=== PATIENT | male | born 1990 | race Caucasian/White ===

== ENCOUNTER 2017-05-05 13:14 | Emergency (ER) | payer OTHER ==
--- NOTE | 2017-05-05 13:37 | ED ---
General Adult HPI - General Stated complaint: ANXIETY Time Seen by Provider: 05/05/17 13:25 Source: RN notes reviewed - History of Present Illness Initial comments: This is a 26-year-old male presents emergency department with past mental history significant for seizures and depression. Patient comes in today because he got into some trauma he states at work and immediately started thinking about wanting to kill himself. Patient states he thought about killing himself by jumping off a rock known at suicide [place] or cutting his wrists. Patient states now is calm down he doesn't feel suicidal and is not even sure he needs to be here. Patient is willing to talk to a counselor. Patient denies any physical complaints today. Patient denies headache patient denies numbness weakness. Patient denies fever chills or cough. Patient denies any chest pain difficult breathing shortness of breath. Patient denies abdominal pain patient denies nausea vomiting diarrhea. - Related Data Home Medications Medication Instructions Recorded Confirmed Divalproex ER [Depakote ER] 1,000 mg PO QAM 05/05/17 05/05/17 Divalproex ER [Depakote ER] 250 mg PO QAM 05/05/17 05/05/17 Allergies Allergy/AdvReac Type Severity Reaction Status Date / Time levetiracetam [From Keppra] Allergy Rash/Hives Verified 05/05/17 14:07 topiramate [From Topamax] Allergy Rash/Hives Verified 05/05/17 14:07 Review of Systems ROS Statement: Those systems with pertinent positive or pertinent negative responses have been documented in the HPI. ROS Other: All systems not noted in ROS Statement are negative. General Exam - General Exam Comments Initial Comments: GENERAL: Patient is well-developed and well-nourished. Patient is nontoxic and well- hydrated and is in no acute distress. ENT: Neck is soft and supple. No significant lymphadenopathy is noted. Oropharynx is clear. Moist mucous membranes. Neck has full range of motion without eliciting any pain. EYES: The sclera were anicteric and conjunctiva were pink and moist. Extraocular movements were intact and pupils were equal round and reactive to light. Eyelids were unremarkable. PULMONARY: Unlabored respirations. Good breath sounds bilaterally. No audible rales rhonchi or wheezing was noted. CARDIOVASCULAR: There is a regular rate and rhythm without any murmurs gallops or rubs. ABDOMEN: Soft and nontender with normal bowel sounds. SKIN: Skin is clear with no lesions or rashes and otherwise unremarkable. NEUROLOGIC: Patient is alert and oriented x3. Cranial nerves II through XII are grossly intact. Motor and sensory are also intact. Normal speech, volume and content. Symmetrical smile. MUSCULOSKELETAL: Normal extremities with adequate strength and full range of motion. No lower extremity swelling or edema. No calf tenderness. 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 Patient states currently does not feel suicidal but he certainly felt suicidal earlier. Course Vital Signs 05/05/17 13:25 Temperature 98.2 F Pulse Rate 88 Respiratory 18 Rate Blood Pressure 132/68 O2 Sat by Pulse 99 Oximetry Disposition Clinical Impression: Situational depression Disposition: HOME SELF-CARE Condition: Good Instructions: Depression (ED) Referrals: Ana Klein MD [Primary Care Provider] - 1-2 days Time of Disposition: 14:43
[2017-05-05 13:39] VITALS: RESP 18
[2017-05-05 14:53] VITALS: BP 127/65; PULSE 80; TEMP 98
== END 2017-05-05 14:47 | disposition home or self-care (01) ==
LOC: EC 13:14
DX: F43.21 Adjustment disorder with depressed mood (principal); R45.851 Suicidal ideations; Z88.8 Allergy status to other drugs, medicaments and biological substances
CPT/HCPCS: 36415; 80164; 82075; 99284

== ENCOUNTER 2022-03-02 18:14 | Inpatient (IN) | payer MEDICAID, OTHER ==
--- NOTE | 2022-03-03 03:02 | ED ---
Psych HPI - General Chief Complaint: Psychiatric Symptoms Stated Complaint: Mental Health Time Seen by Provider: 03/03/22 01:53 Source: patient Mode of arrival: ambulatory - History of Present Illness Initial Comments: This patient is 31-year-old man who was brought to have Court ordered psychiatric evaluation. Patient reportedly noncompliant with treatment. Complaint: other -: days(s) Associated Psychiatric Symptoms: none Quality: constant Improves With: none Worsens With: none - Related Data Home Medications Medication Instructions Recorded Confirmed Divalproex ER [Depakote ER] 500 mg PO BID 05/05/17 03/03/22 Allergies Allergy/AdvReac Type Severity Reaction Status Date / Time levetiracetam [From Keppra] Allergy Rash/Hives Verified 03/03/22 07:59 topiramate [From Topamax] Allergy Rash/Hives Verified 03/03/22 07:59 Review of Systems ROS Statement: Those systems with pertinent positive or pertinent negative responses have been documented in the HPI. ROS Other: All systems not noted in ROS Statement are negative. Constitutional: Denies: fever Respiratory: Denies: cough, dyspnea Cardiovascular: Denies: chest pain, palpitations Gastrointestinal: Denies: abdominal pain, vomiting, diarrhea Genitourinary: Denies: dysuria Musculoskeletal: Denies: back pain Neurological: Denies: headache, weakness Past Medical History Past Medical History: No Reported History History of Any Multi-Drug Resistant Organisms: None Reported Additional Past Surgical History / Comment(s): jaw wired shut previously to heal Past Psychological History: Depression Smoking Status: Never smoker Past Alcohol Use History: Occasional Past Drug Use History: None Reported General Exam Limitations: no limitations General appearance: alert, in no apparent distress Head exam: Present: atraumatic, normocephalic Eye exam: Present: normal appearance. Absent: scleral icterus, conjunctival injection Neck exam: Present: normal inspection Respiratory exam: Present: normal lung sounds bilaterally. Absent: respiratory distress, wheezes, rales, rhonchi, stridor Cardiovascular Exam: Present: regular rate, normal rhythm, normal heart sounds. Absent: systolic murmur, diastolic murmur, rubs, gallop GI/Abdominal exam: Present: soft. Absent: distended, tenderness, guarding, rebound, rigid, mass Extremities exam: Present: normal inspection, normal capillary refill. Absent: pedal edema, calf tenderness Neurological exam: Present: alert, normal gait Psychiatric exam: Present: flat affect. Absent: agitated, anxious, manic, homicidal ideation, suicidal ideation Skin exam: Present: warm, dry, intact, normal color. Absent: rash Course Vital Signs 03/02/22 03/03/22 03/03/22 19:01 01:29 05:57 Temperature 98.2 F 98.1 F Pulse Rate 82 83 68 Pulse Rate [ Right] Respiratory 18 18 16 Rate Blood Pressure 152/87 124/75 97/61 Blood Pressure [Right Arm] O2 Sat by Pulse 98 98 95 Oximetry 03/03/22 08:00 Temperature 97.5 F L Pulse Rate Pulse Rate [ 108 H Right] Respiratory 16 Rate Blood Pressure Blood Pressure 129/59 [Right Arm] O2 Sat by Pulse 98 Oximetry Medical Decision Making - Lab Data Result diagrams: 03/04/22 07:51 03/04/22 07:51 Lab Results 03/03/22 03/03/22 03/03/22 Range/Units 06:01 06:46 06:46 Urine Color Yellow Urine Appearance Clear (Clear) Urine pH 6.0 (5.0-8.0) Ur Specific [place] 1.017 (1.001-1.035) Urine Protein Negative (Negative) Urine Glucose (UA) Negative (Negative) Urine Ketones Negative (Negative) Urine Blood Negative (Negative) Urine Nitrite Negative (Negative) Urine Bilirubin Negative (Negative) Urine Urobilinogen <2.0 (<2.0) mg/dL Ur Leukocyte Esterase Negative (Negative) Urine Opiates Screen Negative (Negative) Urine Methadone Screen Negative (Negative) Ur Propoxyphene Screen Negative (Negative) Urine Barbiturates Negative (Negative) Ur Phencyclidine Scrn Negative (Negative) Ur Amphetamine Screen Negative (Negative) U Benzodiazepines Scrn Negative (Negative) Urine Cocaine Screen Negative (Negative) U Cannabinoids Screen Negative (Negative) Urine Alcohol Negative (Negative) Coronavirus (PCR) Not Detected (Not Detectd) Disposition Clinical Impression: Mood disorder Disposition: ADMITTED IP TO THIS [facility] Condition: Fair Is patient prescribed a controlled substance at d/c from ED?: No
[2022-03-03] MEDS ORDERED: MAG HYDROX/AL HYDROX/SIMETH 30 ML CUP PO PRN (07:46)
[2022-03-03] MEDS ORDERED: MAGNESIUM HYDROXIDE 2,400 MG/10 ML CUP PO PRN (07:46)
[2022-03-03] MEDS ORDERED: ACETAMINOPHEN TAB 325 MG TAB PO PRN (07:46)
[2022-03-03] MEDS ORDERED: LORazepam 1 MG TAB PO PRN (07:50)
[2022-03-03] MEDS ORDERED: LORazepam 2 MG/ML INJ IM PRN (07:50)
[2022-03-03] MEDS ORDERED: HALOPERIDOL LACTATE 5 MG/ML 1 ML VIAL IM PRN (07:52)
[2022-03-03] MEDS ORDERED: haloperidoL 5 MG TAB PO PRN (07:52)
[2022-03-03 07:58] LABS: Appearance,Urine Clear (Clear); Bilirubin,Urine Negative (Negative); Blood,Urine Negative (Negative); Color,Urine Yellow; Glucose,Urine (UA) Negative (Negative); Ketones,Urine Negative (Negative); Leukocyte Esterase,Urine Negative (Negative); Nitrite,Urine Negative (Negative); Protein,Urine Negative (Negative); Specific Gravity,Urine 1.017 (1.001-1.035); Urobilinogen,Urine <2.0 mg/dL (<2.0)
[2022-03-03] MEDS: DIVALPROEX ER 500 MG TAB.ER.24H PO SCH ×2 (09:19→09:20)
--- NOTE | 2022-03-03 10:12 | P.CONS ---
History of Present Illness - Reason for Consult Consult date: 03/03/22 medical management Requesting physician: Jamarcus Goldberg - Chief Complaint depression - History of Present Illness This is a 31-year-old male patient of Dr. Klein who presented to the ER who apparently was brought into have a court ordered psychiatric evaluation due to noncompliance with treatment. Patient has past medical history of depression in which she is maintained on Depakote. Patient denies any other significant health history. Patient denies alcohol or nicotine use. Patient denies any recent illness. Patient denies any acute complaints. Patient denies chest pain or shortness of breath. Patient denies nausea vomiting or diarrhea. Patient denies any urinary burning or frequency. At this time patient has been admitted to the mental health unit. Current vitals temp 98.1, heart rate 68, respiratory rate 16, blood pressure 97/61 patient stating 95% on room air Review of Systems Please refer to HPI otherwise unremarkable Past Medical History Past Medical History: No Reported History History of Any Multi-Drug Resistant Organisms: None Reported Additional Past Surgical History / Comment(s): jaw wired shut previously to heal Past Psychological History: Depression Smoking Status: Never smoker Past Alcohol Use History: Occasional Past Drug Use History: None Reported Medications and Allergies Home Medications Medication Instructions Recorded Confirmed Type Divalproex ER [Depakote ER] 500 mg PO BID 05/05/17 03/03/22 History Allergies Allergy/AdvReac Type Severity Reaction Status Date / Time levetiracetam [From Keppra] Allergy Rash/Hives Verified 03/03/22 07:59 topiramate [From Topamax] Allergy Rash/Hives Verified 03/03/22 07:59 Physical Exam Vitals: Vital Signs Temp Pulse Pulse Resp BP BP Pulse Ox 03/03/22 08:00 97.5 F L 108 H 16 129/59 98 03/03/22 05:57 98.1 F 68 16 97/61 95 03/03/22 01:29 83 18 124/75 98 03/02/22 19:01 98.2 F 82 18 152/87 98 Intake and Output 03/02/22 03/03/22 03/03/22 22:59 06:59 14:59 Other: Weight 81.647 kg 86.9 kg Head normocephalic Neck supple Lungs clear to auscultation bilaterally no wheezing or crackles Heart regular rate and rhythm S1-S2, no rub or gallop Abdomen is soft nontender nondistended positive bowel sounds no hepatosplenomegaly Extremities no edema Neuro alert and orientated to 3 Assessment and Plan Assessment: 1. Depression. Patient has been admitted to the mental health unit 2. Noncompliance with medication. 3. History of seizures patient is maintained on Depakote thank you for this consultation we'll continue to follow patient closely throughout stay
[2022-03-03] MEDS ORDERED: FLUoxetine HCL 10 MG CAP PO STA (13:23)
--- NOTE | 2022-03-03 13:25 | P.HP ---
Psychiatric H&P - . H&P Date: 03/03/22 History & Physical: Allergies Allergy/AdvReac Type Severity Reaction Status Date / Time levetiracetam [From Keppra] Allergy Rash/Hives Verified 03/03/22 07:59 topiramate [From Topamax] Allergy Rash/Hives Verified 03/03/22 07:59 Vital Signs Temp 97.5 F L 03/03/22 08:00 Pulse 108 H 03/03/22 08:00 Resp 16 03/03/22 08:00 BP 129/59 03/03/22 08:00 Pulse Ox 98 03/03/22 08:00 FiO2 Intake & Output 03/02/22 03/03/22 03/03/22 18:59 06:59 18:59 Weight 81.647 kg 86.9 kg Laboratory Last Values Urine Color Yellow 03/03/22 06:46 Urine Appearance Clear (Clear) 03/03/22 06:46 Urine pH 6.0 (5.0-8.0) 03/03/22 06:46 Ur Specific [place] 1.017 (1.001-1.035) 03/03/22 06:46 Urine Protein Negative (Negative) 03/03/22 06:46 Urine Glucose (UA) Negative (Negative) 03/03/22 06:46 Urine Ketones Negative (Negative) 03/03/22 06:46 Urine Blood Negative (Negative) 03/03/22 06:46 Urine Nitrite Negative (Negative) 03/03/22 06:46 Urine Bilirubin Negative (Negative) 03/03/22 06:46 Urine Urobilinogen <2.0 mg/dL (<2.0) 03/03/22 06:46 Ur Leukocyte Esterase Negative (Negative) 03/03/22 06:46 Valproic Acid 77.6 ug/mL 03/03/22 11:25 Coronavirus (PCR) Not Detected (Not Detectd) 03/03/22 06:01 03/03/22 13:24 IDENTIFYING DATA: Patient is a single, employed, 31-year-old male who presents to the hospital under petition for suicidal and homicidal ideation. HPI: Patient presented to the hospital on 03/03/2022, brought into the emergency department by police under petition by the patient's mother for suicidal ideation, anger, and homicidal threats. As per petition filled out by the patient's mother, the patient "went to a gas station and told a girl that he was going to hang himself. He told me and his father that he was going to kill himself. He has threatened to hurt me. He put suicidal postings on Facebook." Upon evaluation on the psychiatric unit, the patient states that "I know what I did was wrong. I'm sorry. Can I please leave." He does express that he has been feeling increasingly depressed over the past few months. He does endorse significant symptoms of mood disorder including anger outbursts, suicidal threats, and homicidal threats. The patient has been previously treated for depression and suicidal ideation but is currently not open with any outpatient services. He does have a history of inpatient psychiatric hospitalization at [facility] as a juvenile and has been trialed on different medications including Abilify, Seroquel, Lexapro, and Topamax. The patient reports that he did not want to be on any medications because he had a poor reaction to medications in the past. As per discussion with the patient's mother and patient permission granted by the patient, the patient had increased suicidal thoughts when on Lexapro. In regards to other mood symptoms, the patient does not endorse any significant history of manic episodes. He denies any increased goal-directed activity, impulsivity and spending, or grandiosity. The patient denies any significant history of psychosis. He reports no history of auditory or visual hallucinations. He denies any paranoia or delusions. The patient is willing to sign himself voluntarily on the psychiatric unit. He states that he will take medications. PAST PSYCHIATRIC HISTORY: Patient states that he has been previously diagnosed with depression. The patient has had previous trials of Abilify, Seroquel, Lexapro, Topamax. Patient has had 1 previous psychiatric hospitalization at [facility] when he was a juvenile. Patient denies any psychiatric outpatient follow-up. Patient denies any history of suicide attempts in the past. PMH: ALLERGIES: Keppra, Topamax CHEMICAL DEPENDENCY HISTORY: Patient denies any tobacco, alcohol, marijuana, or illicit drug use. FAMILY PSYCHIATRIC/SUBSTANCE USE HISTORY: No reported family history. SOCIAL HISTORY: Patient currently lives in an apartment that he is renting from his parents. He is currently employed at the [employer]. He is single, never , and has no children. Hobbies and interests include outdoor activities. He reports no legal issues. MENTAL STATUS EXAM: General Appearance: Patient appears to be stated age is alert, directable, and attempts to cooperate. Patient appears to have fair hygiene and grooming. Behavior: Patient is seated without any agitated behavior. Eye contact is appropriate. Speech: Patient's speech is fluent and nonpressured. Mood/Affect: Patient reports their mood is "I'm better now," affect is irritable Suicidality/Homicidality: Patient is currently denying any suicidal or homicidal ideation. Perceptions: Patient denies any visual hallucinations and denies any auditory hallucinations Though content/process: There is no evidence of any delusional thought content and thought process is linear and goal-directed. Patient is very fixated on discharge. Memory and concentration: AOX3, grossly intact for the purposes of this session. Can spell "WORLD" backwards Judgment and insight: Poor STRENGTHS/WEAKNESSES: Strength is that the patient is gainfully employed and has a supportive family. Weakness that the patient has poor impulse control and poor frustration tolerance. INTELLECT: average IMPRESSIONS: Major depressive disorder, recurrent, severe Intermittent explosive disorder Rule out autism spectrum disorder PLAN: -Patient is admitted under voluntary status to MHU for stabilization of psychiatric symptoms and safety. Patient signed adult voluntary form and medication consent and is placed in patient's chart. -Medications : Will start patient on Prozac for depression and intermittent Also disorder Risperdal 0.5 mg by mouth twice a day for mood stabilization and agitation -Ativan and Haldol PRN for agitation/aggression -Patient was counseled on substance abuse. -Patient was informed of the risks, benefits and side effects of the medication and patient verbally consented to taking the medications. Patient signed med consent form and was placed in chart. -Internal Medicine consult to perform medical evaluation and physical. -SW on board for discharge planning. Encourage patient to participate in groups to work on coping skills.
[2022-03-03 17:00] LABS: Urine Alcohol Negative (Negative); Urine Barbiturate Negative (Negative); Urine Cocaine Negative (Negative); Urine Methadone Negative (Negative); Urine Opiates Negative (Negative); Urine Phencyclidine Negative (Negative)
[2022-03-04] MEDS: FLUoxetine HCL 10 MG CAP PO SCH (08:14)
[2022-03-04 08:15] LABS: Basophils # (A) 0.1 k/uL (0-0.2); Basophils % (A) 1 %; Eosinophils # (A) 0.1 k/uL (0-0.7); Eosinophils % (A) 1 %; HCT 44.8 % (39.0-53.0); HGB 14.8 gm/dL (13.0-17.5); Lymphocytes # (A) 3.9 k/uL (1.0-4.8); Lymphocytes % (A) 43 %; MCH 30.1 pg (25.0-35.0); MCV 91.3 fL (80.0-100.0); Mean Platelet Volume 7.3; Monocytes # (A) 0.7 k/uL (0-1.0); Monocytes % (A) 7 %; Neutrophils % (A) 44 %; Platelet Count 285 k/uL (150-450); RBC 4.91 m/uL (4.30-5.90); RDW 11.9 % (11.5-15.5); WBC 9.1 k/uL (3.8-10.6)
[2022-03-04] MEDS: DIVALPROEX ER 500 MG TAB.ER.24H PO SCH (08:15)
[2022-03-04] MEDS: risperiDONE 0.5 MG TAB PO SCH ×4 (08:15→20:51)
[2022-03-04 08:32] LABS: ALT 24 U/L (4-49); AST 25 U/L (17-59); African American GFR (CKD) >90 (>60 ml/min/1.73 sqM); Albumin 4.3 g/dL (3.5-5.0); Alkaline Phosphatase 34 U/L (38-126); Anion Gap 11 mmol/L; Bilirubin,Unconjugated 0.8 mg/dL (0.0-1.1); Blood Urea Nitrogen 14 mg/dL (9-20); Calcium 9.8 mg/dL (8.4-10.2); Carbon Dioxide 30 mmol/L (22-30); Chloride 100 mmol/L (98-107); Glucose 101 mg/dL (74-99); Non-African American GFR(CKD) >90 (>60 ml/min/1.73 sqM); Potassium 4.5 mmol/L (3.5-5.1); Sodium 141 mmol/L (137-145); Total Bilirubin 0.7 mg/dL (0.2-1.3); Total Protein 7.3 g/dL (6.3-8.2)
[2022-03-04 11:58] LABS: Chol/HDL Ratio 5.67 Ratio; LDL Cholesterol,Calculated 174.6 mg/dL (0.0-131.0)
--- NOTE | 2022-03-04 18:37 | P.PN ---
Progress Note - Text Progress Note Date: 03/04/22 Interval history: Patient was directable and agreeable to speak with staff writer.At this time patient denies any suicidal or homicidal ideations, intent or plan. Denies any auditory or visual hallucinations. Patient denies any side effects from the medications and has been compliant with meds. He is attending groups, but not all. Mental status exam: General Appearance: Patient appears to be stated age. He is disheveled and dressed in hospital gown. Behavior: No agitated behavior. Patient is calm and directable. Speech: Patient's speech is fluent and nonpressured. Mood/Affect: Mood is improving mildly "good", affect is congruent and constricted. Suicidality/Homicidality: Patient denies having any suicidal or homicidal ideation intent or plan. Perceptions: Patient denies any auditory or visual hallucinations. Though content/process: There is no evidence of any delusional thought content, and thought process is circumstantial. Memory and concentration: Alert and oriented to person, place, time (day, month, year), grossly intact for the purposes of this session Judgment and insight: improving mildly Assessment/Plan: Continue with current diagnosis. Patient continues to meet criteria for inpatient psychiatric admission for symptom stabilization and safety. Patient will be maintained on current psychotropic medication regimen. Monitor for medication compliance and for any psychotropic medication side effects. Will continue to monitor ongoing response to treatment. Encouraged participation in milieu.
[2022-03-05] MEDS: DIVALPROEX ER 500 MG TAB.ER.24H PO SCH (08:05)
[2022-03-05] MEDS: FLUoxetine HCL 10 MG CAP PO SCH (08:05)
[2022-03-05] MEDS: risperiDONE 0.5 MG TAB PO SCH ×2 (08:05→21:58)
[2022-03-05 08:06] VITALS: RESP 16
--- NOTE | 2022-03-05 19:04 | P.PN ---
Progress Note - Text Progress Note Date: 03/05/22 Interval history: Patient was directable and agreeable to speak with underwriter solicitation director. He reports his mood is "great". He reports good sleep and appetite. At this time patient denies any suicidal or homicidal ideations, intent or plan. Denies any auditory or visual hallucinations. Patient denies any side effects from the medications and has been compliant with meds. He is attending groups, attended all groups today. Mental status exam: General Appearance: Patient appears to be stated age. He is disheveled and dressed in hospital gown. Behavior: No agitated behavior. Patient is calm and directable. Speech: Patient's speech is fluent and nonpressured. Mood/Affect: Mood is improving mildly "good", affect is congruent and constricted. Suicidality/Homicidality: Patient denies having any suicidal or homicidal ideation intent or plan. Perceptions: Patient denies any auditory or visual hallucinations. Though content/process: There is no evidence of any delusional thought content, and thought process is circumstantial. Memory and concentration: Alert and oriented to person, place, time (day, month, year), grossly intact for the purposes of this session Judgment and insight: improving mildly Assessment/Plan: Continue with current diagnosis. Patient continues to meet criteria for inpatient psychiatric admission for symptom stabilization and safety. Patient will be maintained on current psychotropic medication regimen. Monitor for medication compliance and for any psychotropic medication side effects. Will continue to monitor ongoing response to treatment. Encouraged participation in milieu.
[2022-03-06] MEDS: risperiDONE 0.5 MG TAB PO SCH ×2 (08:01→20:32)
[2022-03-06] MEDS: FLUoxetine HCL 10 MG CAP PO SCH (08:01)
[2022-03-06] MEDS: DIVALPROEX ER 500 MG TAB.ER.24H PO SCH (08:01)
--- NOTE | 2022-03-06 11:35 | P.PN ---
Progress Note - Text Progress Note Date: 03/06/22 Interval History: Patient was seen wandering the hallways and was directable and agreeable to speak with customs entry writer in the office. The patient expresses that he is feeling better. He is currently denying any suicidal or homicidal ideation, intention, and/or plan. He expresses that he does require help in learning appropriate coping skills to deal with those around him. He is currently not reporting any auditory or visual hallucinations. He denies any paranoia or other delusions. The patient remains future and goal oriented. He states that he has been participating in groups and has been getting along with his peers. He denies any issues regarding his sleep was appetite. He has been adherent with his medications and is denying any side effects at this time. Mental Status Exam: General Appearance: Patient appears to be stated age is alert, directable, and cooperative. Behavior: Patient is calmly seated without any agitated behavior. Speech: Patient's speech is fluent and nonpressured. Mood/Affect: Mood is improving mildly, affect is congruent and constricted. Suicidality/Homicidality: Patient denies having any suicidal or homicidal ideation intent or plan. Perceptions: Patient denies any visual hallucinations and denies any auditory hallucinations Though content/process: There is no evidence of any delusional thought content and thought process is linear and goal-directed. Memory and concentration: AOX3, grossly intact for the purposes of this session Judgment and insight: Improving mildly Vital Signs Temp 98.8 F 03/06/22 07:03 Pulse 96 03/06/22 07:03 Resp 16 03/05/22 08:04 BP 118/61 03/06/22 07:03 Pulse Ox 96 03/06/22 07:03 FiO2 Intake & Output 03/05/22 03/06/22 03/06/22 18:59 06:59 18:59 Weight 86.2 kg Assessment Major depressive disorder, recurrent, severe Intermittent explosive disorder Rule out autism spectrum disorder Plan: -Patient continues to meet criteria for inpatient psychiatric admission for symptom stabilization and safety. Patient has signed adult voluntary form and medication consent and was placed in patient's chart. -Medications: Continue Risperdal 0.5 mg by mouth twice a day Continue Depakote 1000 mg by mouth every morning Continue Prozac 30 mg by mouth daily -When necessary Ativan and Haldol for agitation/aggression. -SW on board for discharge planning. Encouraged the patient to participate in milieu.
[2022-03-07] MEDS: FLUoxetine HCL 10 MG CAP PO SCH (08:03)
[2022-03-07] MEDS: risperiDONE 0.5 MG TAB PO SCH (08:03)
[2022-03-07] MEDS: DIVALPROEX ER 500 MG TAB.ER.24H PO SCH (08:03)
[2022-03-07 08:06] VITALS: BP 124/76; PULSE 76; TEMP 97.8
--- NOTE | 2022-03-07 12:20 | P.DS ---
Providers Date of admission: 03/03/22 07:41 Expected date of discharge: 03/07/22 Attending physician: Sha Giles MD Consults: 03/03/22 07:46 Consult Physician Routine Consulting Provider: Juan J Martel Consult Reason/Comments: Medical consultation Do you want consulting provider notified?: Already Contacted Primary care physician: Ana Klein - Discharge Diagnosis(es) (1) Major depressive disorder Current Visit: Yes Status: Acute Priority: High (2) Intermittent explosive disorder Current Visit: Yes Status: Chronic Priority: High Hospital Course: Admission HPI: Patient is a single, employed, 31-year-old male who presents to the hospital under petition for suicidal and homicidal ideation. Patient presented to the hospital on 03/03/2022, brought into the emergency department by police under petition by the patient's mother for suicidal ideation, anger, and homicidal threats. As per petition filled out by the patient's mother, the patient "went to a gas station and told a girl that he was going to hang himself. He told me and his father that he was going to kill himself. He has threatened to hurt me. He put suicidal postings on Facebook." Upon evaluation on the psychiatric unit, the patient states that "I know what I did was wrong. I'm sorry. Can I please leave." He does express that he has been feeling increasingly depressed over the past few months. He does endorse significant symptoms of mood disorder including anger outbursts, suicidal threats, and homicidal threats. The patient has been previously treated for depression and suicidal ideation but is currently not open with any outpatient services. He does have a history of inpatient psychiatric hospitalization at [facility] as a juvenile and has been trialed on different medications including Abilify, Seroquel, Lexapro, and Topamax. The patient reports that he did not want to be on any medications because he had a poor reaction to medicati ons in the past. As per discussion with the patient's mother and patient permission granted by the patient, the patient had increased suicidal thoughts when on Lexapro. In regards to other mood symptoms, the patient does not endorse any significant history of manic episodes. He denies any increased goal-directed activity, impulsivity and spending, or grandiosity. The patient denies any significant history of psychosis. He reports no history of auditory or visual hallucinations. He denies any paranoia or delusions. The patient is willing to sign himself voluntarily on the psychiatric unit. He states that he will take medications. Patient states that he has been previously diagnosed with depression. The patient has had previous trials of Abilify, Seroquel, Lexapro, Topamax. Patient has had 1 previous psychiatric hospitalization at [facility] when he was a juvenile. Patient denies any psychiatric outpatient follow-up. Patient denies any history of suicide attempts in the past. Hospital course: Upon admission to the unit patient was initially upset and angry and demanding to leave. Patient was however directable and agreeable to commence treatment. Patient got along well with other patients on the unit and followed unit protocol. Patient was compliant with the medications and denied any side effects throughout hospital course. Patient was started on Prozac for depress ion and intermittent explosive disorder as well as Risperdal for mood stabilization and agitation. Patient spoke of his stressors and engaged in therapy both group and individual. Patient was also seen by medical team for history and physical exam. Over the course of the hospitalization, the patient displayed gradual but significant improvement in regards to his mood and became more future and goal oriented. He also became more compliant and attending groups with a high level of participation. Furthermore, the patient was able to learn appropriate coping skills and work on communication skills with this provider. On the day of discharge, the patient is not reporting any suicidal or homicidal ideation, intention, and/or plan. He denies any access to firearms or other weapons and states that the family has this under control. Furthermore, the patient reports no intentions to harm anyone. He reports wanting to live for himself and for his family. Patient does not endorse any significant delusional thought content or any paranoia. Patient denies any auditory or visual hallucinations. The patient does not have a significant history of substance abuse however was counseled on abstaining from all substances including alcohol and marijuana. The patient was counseled at length on the importance of medication adherence and appropriate outpatient follow-up. Prior to discharge, family meeting will be arranged by clinical social worker to answer questions and ensure safety. Mental status exam: General Appearance: Patient appears to be stated age is alert, pleasant, and cooperative. Patient is in no acute distress and has fair hygiene and grooming Behavior: Patient is calmly seated without any agitated behavior. Speech: Patient's speech is fluent and nonpressured. Mood/Affect: Patient reports their mood is "I'm feeling pretty much better." Affect is congruent and euthymic. Suicidality/Homicidality: Patient denies having any suicidal or homicidal ideation intent or plan. Perceptions: Patient denies any auditory or visual hallucinations. Though content/process: There is no evidence of any delusional thought content and thought process is linear and goal-directed. The patient is future oriented. Memory and concentration: AOX3, grossly intact for the purposes of this session. Can spell "WORLD" backwards correctly. Judgment and insight: Improved Vital Signs Temp 97.8 F 03/07/22 08:05 Pulse 76 03/07/22 08:05 Resp 16 03/07/22 08:05 BP 124/76 03/07/22 08:05 Pulse Ox 96 03/06/22 07:03 FiO2 Laboratory Results WBC 9.1 k/uL (3.8-10.6) 03/04/22 07:51 RBC 4.91 m/uL (4.30-5.90) 03/04/22 07:51 Hgb 14.8 gm/dL (13.0-17.5) 03/04/22 07:51 Hct 44.8 % (39.0-53.0) 03/04/22 07:51 MCV 91.3 fL (80.0-100.0) 03/04/22 07:51 MCH 30.1 pg (25.0-35.0) 03/04/22 07:51 MCHC 33.0 g/dL (31.0-37.0) 03/04/22 07:51 RDW 11.9 % (11.5-15.5) 03/04/22 07:51 Plt Count 285 k/uL (150-450) 03/04/22 07:51 MPV 7.3 03/04/22 07:51 Neutrophils % 44 % 03/04/22 07:51 Lymphocytes % 43 % 03/04/22 07:51 Monocytes % 7 % 03/04/22 07:51 Eosinophils % 1 % 03/04/22 07:51 Basophils % 1 % 03/04/22 07:51 Neutrophils # 4.0 k/uL (1.3-7.7) 03/04/22 07:51 Lymphocytes # 3.9 k/uL (1.0-4.8) 03/04/22 07:51 Monocytes # 0.7 k/uL (0-1.0) 03/04/22 07:51 Eosinophils # 0.1 k/uL (0-0.7) 03/04/22 07:51 Basophils # 0.1 k/uL (0-0.2) 03/04/22 07:51 Sodium 141 mmol/L (137-145) 03/04/22 07:51 Potassium 4.5 mmol/L (3.5-5.1) 03/04/22 07:51 Chloride 100 mmol/L (98-107) 03/04/22 07:51 Carbon Dioxide 30 mmol/L (22-30) 03/04/22 07:51 Anion Gap 11 mmol/L 03/04/22 07:51 BUN 14 mg/dL (9-20) 03/04/22 07:51 Creatinine 0.76 mg/dL (0.66-1.25) 03/04/22 07:51 Est GFR (CKD-EPI)AfAm >90 (>60 ml/min/1.73 sqM) 03/04/22 07:51 Est GFR (CKD-EPI)NonAf >90 (>60 ml/min/1.73 sqM) 03/04/22 07:51 Glucose 101 mg/dL (74-99) H 03/04/22 07:[address] Glu mg/dL 107 03/04/22 07:51 Hemoglobin A1c 5.4 % (0.0-6.0) 03/04/22 07:51 Calcium 9.8 mg/dL (8.4-10.2) 03/04/22 07:51 Total Bilirubin 0.7 mg/dL (0.2-1.3) 03/04/22 07:51 Conjugated Bilirubin 0.0 mg/dL (0.0-0.3) 03/04/22 07:51 Unconjugated Bilirubin 0.8 mg/dL (0.0-1.1) 03/04/22 07:51 Delta Bilirubin 0.0 mg/dL (0.0-0.2) 03/04/22 07:51 AST 25 U/L (17-59) 03/04/22 07:51 ALT 24 U/L (4-49) 03/04/22 07:51 Alkaline Phosphatase 34 U/L (38-126) L 03/04/22 07:51 Total Protein 7.3 g/dL (6.3-8.2) 03/04/22 07:51 Albumin 4.3 g/dL (3.5-5.0) 03/04/22 07:51 Triglycerides 144.00 mg/dL (0.00-149.00) 03/04/22 07:51 Cholesterol 247.00 mg/dL (0.00-200.00) H 03/04/22 07:51 LDL Cholesterol, Calc 174.6 mg/dL (0.0-131.0) H 03/04/22 07:51 VLDL Cholesterol, Calc 28.80 mg/dL (5.00-40.00) 03/04/22 07:51 HDL Cholesterol 43.60 mg/dL (40.00-60.00) 03/04/22 07:51 Cholesterol/HDL Ratio 5.67 Ratio 03/04/22 07:51 TSH 1.780 mIU/L (0.465-4.680) 03/04/22 07:51 Urine Color Yellow 03/03/22 06:46 Urine Appearance Clear (Clear) 03/03/22 06:46 Urine pH 6.0 (5.0-8.0) 03/03/22 06:46 Ur Specific [place] 1.017 (1.001-1.035) 03/03/22 06:46 Urine Protein Negative (Negative) 03/03/22 06:46 Urine Glucose (UA) Negative (Negative) 03/03/22 06:46 Urine Ketones Negative (Negative) 03/03/22 06:46 Urine Blood Negative (Negative) 03/03/22 06:46 Urine Nitrite Negative (Negative) 03/03/22 06:46 Urine Bilirubin Negative (Negative) 03/03/22 06:46 Urine Urobilinogen <2.0 mg/dL (<2.0) 03/03/22 06:46 Ur Leukocyte Esterase Negative (Negative) 03/03/22 06:46 Urine Opiates Screen Negative (Negative) 03/03/22 06:46 Urine Methadone Screen Negative (Negative) 03/03/22 06:46 Ur Propoxyphene Screen Negative (Negative) 03/03/22 06:46 Urine Barbiturates Negative (Negative) 03/03/22 06:46 Valproic Acid 77.6 ug/mL 03/03/22 11:25 Ur Phencyclidine Scrn Negative (Negative) 03/03/22 06:46 Ur Amphetamine Screen Negative (Negative) 03/03/22 06:46 U Benzodiazepines Scrn Negative (Negative) 03/03/22 06:46 Urine Cocaine Screen Negative (Negative) 03/03/22 06:46 U Cannabinoids Screen Negative (Negative) 03/03/22 06:46 Urine Alcohol Negative (Negative) 03/03/22 06:46 Coronavirus (PCR) Not Detected (Not Detectd) 03/03/22 06:01 Allergies Allergy/AdvReac Type Severity Reaction Status Date / Time levetiracetam [From Keppra] Allergy Rash/Hives Verified 03/03/22 07:59 topiramate [From Topamax] Allergy Rash/Hives Verified 03/03/22 07:59 Impression: Major depressive disorder, recurrent, severe Intermittent explosive disorder Plan: -Continue with discharge today as patient has improved and stabilized psychiatrically and is not currently an imminent threat to himself and/or others. Patient has numerous protective factors including a supportive family, gainful employment, and future orientation. He also has no prior attempts at suicide. -Continue medications: Depakote 1000 mg by mouth every morning for seizure disorder Prozac 30 mg by mouth daily for depression/anxiety/intermittent explosive disorder Risperdal 0.5 mg by mouth twice a day for agitation -Patient was counseled on the need for medication compliance and appropriate follow-up at mental health and also primary care for medical issues. Patient verbalized understanding and agreed. -Social work to arrange for and conduct family meeting to ensure safety upon discharge and answer any questions/concerns. Social work also to arrange for patients follow up appointments for psychiatric care along with follow up with primary care provider. -Patient counseled on abstaining from recreational drugs and marijuana and alcohol. Was informed/educated on the adverse effects on their physical and mental health. Patient verbally agreed and understood. -Patient was instructed to return to the hospital or seek immediate medical care if their psychiatric or medical symptoms do worsen or reoccur. -Psychoeducation and supportive therapy provided to patient. Risks and benefits of pharmacological treatment versus the risks and benefits of nontreatment weight and discussed. Informed consent discussion held. Common side effects of psychotropics discussed such as, but not limited to headache, GI disturbance, sexual dysfunction, movement disorders, sedation, and orthostatic hypotension. Life threatening and blackbox warnings of prescribed medications also discussed. Potential risks of operating a vehicle or heavy machinery discussed with patient at length. Advised on importance of compliance and a reliable and responsible manner. Patient advised to review FDA consumer labeling of all medications prior to taking. Patient verbalized understanding of potential risks, and agrees with current treatment plan. Patient advised to medically contact physician/emergency personnel if any acute changes in condition occur. Patient Condition at Discharge: Stable Plan - Discharge Summary New Discharge Prescriptions: New Divalproex ER [Depakote ER] 1,000 mg PO QAM 30 Days tab FLUoxetine HCL [PROzac] 30 mg PO DAILY 30 Days cap risperiDONE [RisperDAL] 0.5 mg PO BID 30 Days tab Discontinued Divalproex ER [Depakote ER] 500 mg PO BID Discharge Medication List Divalproex ER [Depakote ER] 1,000 mg PO QAM 30 Days tab 03/07/22 [Rx] FLUoxetine HCL [PROzac] 30 mg PO DAILY 30 Days cap 03/07/22 [Rx] risperiDONE [RisperDAL] 0.5 mg PO BID 30 Days tab 03/07/22 [Rx] Follow up Appointment(s)/Referral(s): Ana Klein MD [Primary Care Provider] - 1-2 days Patient Instructions/Handouts: How to Stop Smoking (DC), Mood Disorders (DC) Activity/Diet/Wound Care/Special Instructions: Activity and diet as tolerated. Avoid the use of street drugs and alcohol. Take all medications as prescribed. When you are in need of refills on your medications please contact your medical provider and/or outpatient psychiatrist to have this done. Please go to scheduled outpatient appointment for aftercare treatment. If symptoms return or become worse, call the crisis line at and/or go to the nearest emergency room for evaluation Discharge Disposition: HOME SELF-CARE
== END 2022-03-07 15:10 | disposition home or self-care (01) | DRG 885 ==
LOC: EC 18:14 → 3MHU 03-03 07:41
PROVIDERS: ADMIT Psychiatry & Neurology Psychiatry; ATTEND Psychiatry & Neurology Psychiatry
DX: F33.2 Major depressive disorder, recurrent severe without psychotic features (principal); R45.851 Suicidal ideations; F41.9 Anxiety disorder, unspecified; F63.81 Intermittent explosive disorder; G40.909 Epilepsy, unspecified, not intractable, without status epilepticus; R45.850 Homicidal ideations; Z79.899 Other long term (current) drug therapy; Z91.14 Patient's other noncompliance with medication regimen; Z91.19 Patient's noncompliance with other medical treatment and regimen; Z20.822 Contact with and (suspected) exposure to COVID-19
CPT/HCPCS: 80053; 80061; 80164; 80306; 81003; 82075; 82248; 83036; 84443; 85025; 87635; 99284